=== PATIENT | female | born 1950 | race Two or more races ===

== ENCOUNTER 2020-06-21 09:32 | Outpatient (CLI) | payer OTHER | END 2020-06-21 10:20 | disposition home or self-care (01) | LOC: OFIC 805 09:32 | PROVIDERS: ATTEND Otolaryngology | DX: R09.81 Nasal congestion (principal); J30.89 Other allergic rhinitis; H61.23 Impacted cerumen, bilateral; J34.89 Other specified disorders of nose and nasal sinuses ==